=== PATIENT | male | born 1990 | race Two or more races ===

== ENCOUNTER 2020-10-05 16:42 | Emergency (ER) | payer OTHER ==
[~2020-10-05] VITALS: Ht 175.3 cm; Wt 81.1 kg
--- NOTE | 2020-10-05 17:44 | NUR ---
Pt to imaging. This RN inquired about his pain. Requested pain meds from [facility].
[2020-10-05] MEDS ORDERED: IBUPROFEN 600 MG TABLET PO ONE (18:00)
[2020-10-05] MEDS ORDERED: HYDROcodone/APAP 5/325 TABLET PO ONE (18:00)
[2020-10-05] MEDS ORDERED: HYDROcodone/APAP 5/325 TABLET ONE (18:35)
[2020-10-05] MEDS ORDERED: IBUPROFEN 600 MG TABLET ONE (18:35)
--- NOTE | 2020-10-05 18:45 | NUR ---
BEDSIDE REPORT FROM NIKHIL RN, PT CARE TRANSFERRED AT THIS TIME. PT RESTING ON GURNEY, NAD, APPEARS COMFORTABLE, BED IN LOWEST, RAILS ENGAGED, CALL LIGHT ON LAP, DENIES ADDITIONAL QUESTIONS OR NEEDS AT THIS TIME. MONITORING IN PLACE. WCTM.
--- NOTE | 2020-10-05 19:48 | NUR ---
Patient is resting comfortably in bed. Bed in lowest, rails engaged, call light on lap. NO CHANGE IN CONDITION. WCTM.
[2020-10-05 20:15] VITALS: BP 125/76
--- NOTE | 2020-10-05 20:15 | NUR ---
Patient given discharge instructions and they have confirmed that they understand the instructions. Patient ambulatory with steady gait. NAD, all questions answered appropriately, denies additional needs at this time. No personal belongings left in room after discharge.
== END 2020-10-05 20:53 | disposition home or self-care (01) ==
LOC: ED 17:00
DX: S06.0X0A Concussion without loss of consciousness, initial encounter (principal); S40.011A Contusion of right shoulder, initial encounter; S60.051A Contusion of right little finger without damage to nail, initial encounter; M54.2 Cervicalgia; W11.XXXA Fall on and from ladder, initial encounter; Y93.89 Activity, other specified; Y92.009 Unspecified place in unspecified non-institutional (private) residence as the place of occurrence of the external cause; Y99.8 Other external cause status
CPT/HCPCS: 70450; 71045; 72125; 99285